=== PATIENT | female | born 1980 | race Two or more races ===

== ENCOUNTER → 2025-05-23 | Outpatient (CLI) | payer OTHER, SELFPAY ==
--- NOTE | 2025-05-23 16:52 | XR_ITS ---
Examination: Foot, left, 3 views Technique: AP, oblique, lateral views foot, 3 views Date and time of exam: May 23, 2025 0522 hrs. Indications: Injury to the foot one month ago with foot pain Findings: Prominent osteopenia. Moderate osteoarthritis first metatarsophalangeal joint. No acute fracture. 6 mm plantar bony calcaneal spur. 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
== END | disposition home or self-care (01) ==
PROVIDERS: PCP Nurse Practitioner Family; Referring Provider Nurse Practitioner Family; Visit Provider Nurse Practitioner Family
DX: M79.672 Pain in left foot (principal); S99.922A Unspecified injury of left foot, initial encounter; X58.XXXA Exposure to other specified factors, initial encounter
CPT/HCPCS: 73630